=== PATIENT | female | born 1980 | race Caucasian/White ===

== ENCOUNTER 2016-05-14 23:18 | Emergency (ER) | payer SELFPAY ==
[~2016-05-14] VITALS: Ht 157.5 cm; Wt 54.5 kg
[2016-05-14 23:23] VITALS: Ht 157.5 cm; Wt 54.5 kg
[2016-05-14] MEDS ORDERED: DIPHENHYDRAMINE 50 MG INJ IM ONE (23:30)
[2016-05-14] MEDS ORDERED: LORAZEPAM 2 MG INJ IM ONE (23:30)
[2016-05-14] MEDS ORDERED: HALOPERIDOL 5 MG INJ IM ONE (23:30)
[2016-05-15 00:10] LABS: ADD SCAN DIFF NO
[2016-05-15 00:13] LABS: BASOPHIL # 0.1 10^3/ul (0.0-0.1); BASOPHILS % 0.5 % (0.0-2.0); EOSINOPHILS % 0.3 % (0.0-7.0); HEMATOCRIT 37.7 % (37.0-47.0); HEMOGLOBIN 12.7 g/dl (12.0-16.0); LYMPHOCYTES # 1.5 10^3/ul (0.8-2.9); LYMPHOCYTES % 16.4 % (15.0-51.0); MEAN CORPUSCULAR HEMOGLOBIN 30.3 pg (29.0-33.0); MEAN CORPUSCULAR HGB CONC 33.7 g/dl (32.0-37.0); MEAN PLATELET VOLUME 10.6 fl (7.4-10.4); MONOCYTE # 0.5 10^3/ul (0.3-0.9); MONOCYTES % 4.9 % (0.0-11.0); NEUTROPHIL # 7.2 10^3/ul (1.6-7.5); NEUTROPHILS % 77.5 % (39.0-77.0); PLATELET COUNT 321 10^3/UL (140-415); RED BLOOD COUNT 4.19 10^6/ul (4.20-5.40); RED CELL DISTRIBUTION WIDTH 12.8 % (11.5-14.5); WHITE BLOOD COUNT 9.3 10^3/ul (4.8-10.8)
[2016-05-15 00:30] LABS: ALBUMIN 4.2 g/dl (3.3-4.9); CHLORIDE 111 mmol/L (97-110)
[2016-05-15 00:31] LABS: POTASSIUM 3.9 mmol/L (3.5-5.1); SODIUM 146 mmol/L (135-144)
[2016-05-15 00:33] LABS: ALANINE AMINOTRANSFERASE 26 IU/L (13-69); ALBUMIN/GLOBULIN RATIO 1.44; ALKALINE PHOSPHATASE 42 IU/L (42-121); ANION GAP 15 (8-16); ASPARTATE AMINO TRANSFERASE 35 IU/L (15-46); BILIRUBIN,INDIRECT 0.1 mg/dl (0-1.1); BILIRUBIN,TOTAL 0.1 mg/dl (0.2-1.3); BLOOD UREA NITROGEN 6 mg/dl (7-20); CARBON DIOXIDE 24 mmol/L (21-31); GLUCOSE 99 mg/dl (70-220); TOTAL PROTEIN 7.1 g/dl (6.1-8.1)
[2016-05-15 00:33] LABS: ADD UMIC NO; URINE BILIRUBIN (Dip) NEGATIVE (NEGATIVE); URINE BLOOD (Dip) NEGATIVE (NEGATIVE); URINE COLOR LT. YELLOW (YELLOW); URINE GLUCOSE (Dip) NEGATIVE (NEGATIVE); URINE KETONES (Dip) NEGATIVE (NEGATIVE); URINE LEUKOCYTE ESTERASE (Dip) NEGATIVE (NEGATIVE); URINE NITRITE (Dip) NEGATIVE (NEGATIVE); URINE TOTAL PROTEIN (Dip) NEGATIVE (NEGATIVE); URINE UROBILINOGEN (Dip) 0.2 E.U./dL (0.1-1.0)
[2016-05-15 00:34] LABS: CALCIUM 9.1 mg/dl (8.4-10.2)
[2016-05-15 00:59] LABS: ACETAMINOPHEN < 10.0 ug/ml (10.0-30.0); SALICYLATE < 1.0 mg/dl (5.0-30.0)
[2016-05-15 01:00] LABS: BARBITURATES Negative (NEGATIVE); BENZODIAZEPINES Negative (NEGATIVE); CANNABINOIDS Positive (NEGATIVE); COCAINE Negative (NEGATIVE); OPIATES Negative (NEGATIVE)
--- NOTE | 2016-05-15 01:36 | ERD ---
ER Documentation Chief Complaint Date/Time DATE: 05/15/16 TIME: 01:35 Chief Complaint ETOH intoxication,refused to say what alcohol she took,c/o rt wrist pain HPI This is a very pleasant 36 year female comes in with acute alcohol intoxication. Patient brought in by rescue. Patient very combative and yelling. Patient given Haldol Ativan and Benadryl to stabilize patient and placed in soft restraints. No relevant history per patient. History of per EMS run sheet. ROS All systems reviewed and are negative except as per history of present illness. Allergies Allergies: Coded Allergies: No Known Allergy (Unverified , 05/14/16) PMhx/Soc History of Surgery: Yes (C SECTION ) Anesthesia Reaction: No Hx Neurological Disorder: No Hx Respiratory Disorders: No Hx Cardiac Disorders: No Hx Psychiatric Problems: No Hx Miscellaneous Medical Probl: No Hx Alcohol Use: Yes Hx Substance Use: Yes (MARIJUANA) Hx Tobacco Use: No Smoking Status: Never smoker Physical Exam Vitals Vital Signs Date Time Temp Pulse Resp B/P Pulse Ox O2 Delivery O2 Flow Rate FiO2 05/15/16 00:15 97.2 88 19 102/51 97 05/15/16 00:00 97.2 72 19 109/53 97 05/14/16 23:45 97.3 87 21 133/70 95 05/14/16 23:30 97.2 95 25 130/72 96 05/14/16 23:23 97.4 84 18 121/83 98 Physical Exam Const: [] Head: Atraumatic Eyes: Normal Conjunctiva ENT: Normal External Ears, Nose and Mouth. Neck: Full range of motion..~ No meningismus. Resp: Clear to auscultation bilaterally Cardio: Regular rate and rhythm, no murmurs Abd: Soft, non tender, non distended. Normal bowel sounds Skin: No petechiae or rashes Back: No midline or flank tenderness Ext: No cyanosis, or edema Neur: Awake and alert Psych: Normal Mood and Affect Result Diagram: 05/14/165 05/14/16 2345 Results 24 hrs Laboratory Tests Test 05/14/16 23:45 05/14/16 23:55 White Blood Count 9.310^3/ul Red Blood Count 4.1910^6/ul Hemoglobin 12.7g/dl Hematocrit 37.7% Mean Corpuscular Volume 90.0fl Mean Corpuscular Hemoglobin 30.3pg Mean Corpuscular Hemoglobin Concent 33.7g/dl Red Cell Distribution Width 12.8% Platelet Count 14014^3/UL Mean Platelet Volume 10.6fl Neutrophils % 77.5% Lymphocytes % 16.4% Monocytes % 4.9% Eosinophils % 0.3% Basophils % 0.5% Nucleated Red Blood Cells % 0.0/100WBC Neutrophils # 7.210^3/ul Lymphocytes # 1.510^3/ul Monocytes # 0.510^3/ul Eosinophils # 0.010^3/ul Basophils # 0.110^3/ul Nucleated Red Blood Cells # 0.010^3/ul Sodium Level 146mmol/L Potassium Level 3.9mmol/L Chloride Level 111mmol/L Carbon Dioxide Level 24mmol/L Anion Gap 15 Blood Urea Nitrogen 6mg/dl Creatinine 0.70mg/dl Glucose Level 99mg/dl Calcium Level 9.1mg/dl Total Bilirubin 0.1mg/dl Direct Bilirubin 0.00mg/dl Indirect Bilirubin 0.1mg/dl Aspartate Amino Transf (AST/SGOT) 35IU/L Alanine Aminotransferase (ALT/SGPT) 26IU/L Alkaline Phosphatase 42IU/L Total Protein 7.1g/dl Albumin 4.2g/dl Globulin 2.90g/dl Albumin/Globulin Ratio 1.44 Salicylates Level < 1.0mg/dl Acetaminophen Level < 10.0ug/ml Ethyl Alcohol Level 256.0mg/dl Urine Color LT. YELLOW Urine Clarity CLEAR Urine pH 5.0 Urine Specific [place] <1.005 Urine Ketones NEGATIVE Urine Nitrite NEGATIVE Urine Bilirubin NEGATIVE Urine Urobilinogen 0.2 E.U./dL Urine Leukocyte Esterase NEGATIVE Urine Hemoglobin NEGATIVE Urine Glucose NEGATIVE% Urine Total Protein NEGATIVE Urine Opiates Screen Negative Urine Barbiturates Negative Urine Amphetamines Screen Negative Urine Benzodiazepines Screen Negative Urine Cocaine Screen Negative Urine Cannabinoids Positive Current Medications Medications (Trade) Dose Ordered Sig/Rosi Route PRN Reason Start Time Stop Time Status Last Admin Dose Admin Haloperidol (Haldol) 5 mg ONCE ONCE IM 05/14/16 23:30 05/14/16 23:31 DC 05/14/16 23:40 Diphenhydramine HCl (Benadryl) 50 mg ONCE ONCE IM 05/14/16 23:30 05/14/16 23:31 DC 05/14/16 23:39 Lorazepam (Ativan) 2 mg ONCE ONCE IM 05/14/16 23:30 05/14/16 23:31 DC 05/14/16 23:39 Procedures/MDM Medical decision-making: This patient polysubstance abuse. She has been sedated for her own safety. At this point is been allowed to sober. She will be discharged home on her own recognizance. She has been advised to stop drinking and stop using illicit drugs Observation: Time: 4hours Family Hx: No Hypertension Evaluation: Frequent mental status exams showed improving symptoms and proof that the patient's encephalopathy was secondary to intoxication. Departure Diagnosis: Primary Impression: Alcoholic intoxication Complication of substance-induced condition: uncomplicated Qualified Code: F10.120 - Alcoholic intoxication, uncomplicated Condition: Stable NAT CORNELIUS May 15, 2016 01:36
[2016-05-15 03:11] VITALS: BP 106/63; PULSE 70; RESP 15; TEMP 98.1
== END 2016-05-15 03:47 | disposition left against medical advice (07) ==
LOC: E/R 23:18
DX: F10.120 Alcohol abuse with intoxication, uncomplicated (principal); R40.2252 Coma scale, best verbal response, oriented, at arrival to emergency department; R40.2142 Coma scale, eyes open, spontaneous, at arrival to emergency department; R40.2362 Coma scale, best motor response, obeys commands, at arrival to emergency department
CPT/HCPCS: 80053; 80306; 80307; 81003; 85025; J1200; J1630; J2060; 36415; 96372